=== PATIENT | male | born 1935 | race Caucasian/White ===

== ENCOUNTER 2021-02-25 02:02 | Day surgery (SDC) | payer MEDICARE, SELFPAY ==
[2021-02-16 14:05] VITALS: BMI 26.2
--- NOTE | 2021-02-23 13:25 | P.HP_ITS ---
History of Present Illness History of Present Illness Consent: Risks, benefits, and alternatives have been discussed and questions answered. Patient agrees to proceed with procedure. Chief complaint: dysphagia Narrative: Jethro Nova Jr. is a 85 year old male Was being investigated for persistent severe dysphagia. He has to chew his food quite a bit prior to swallowing. 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 Review of Systems Review of Systems: All systems reviewed & are unremarkable except as noted in HPI and below PMFSH Past Medical History Medical History Heart attack Surgical History Surgical History History of coronary artery stent placement Family History Family History Sibling Asthma Social History Social History Smoking status: Former smoker Tobacco type: cigarettes Living arrangements: with family Spiritual care concerns: No Meds Home Medications and Allergies Home Medications Medication Instructions Recorded Confirmed Type amlodipine 10 mg PO DAILY 02/16/21 02/25/21 History aspirin 81 mg capsule 81 mg PO DAILY 02/16/21 02/25/21 History atenolol 50 mg tablet 50 mg PO DAILY 02/16/21 02/25/21 History fluvastatin 80 mg tablet,extended 80 mg PO DAILY 02/16/21 02/25/21 History release 24 hr furosemide 40 mg tablet 20 mg PO QAM 02/16/21 02/25/21 History isosorbide mononitrate 60 mg 60 mg PO DAILY 02/16/21 02/25/21 History tablet,extended release 24 hr lisinopril 40 mg tablet 40 mg PO DAILY 02/16/21 02/25/21 History nitroglycerin 0.4 mg sublingual 0.4 mg SUBLINGUAL Q5M PRN 02/16/21 02/25/21 History tablet omeprazole 20 mg capsule,delayed 20 mg PO DAILY 02/16/21 02/25/21 History release vitamins A,C,B-ifoy-msffnd 14,320 1 cap PO QAM AND QPM cap 02/16/21 02/25/21 History unit-226 mg-200 unit capsule Allergies Allergy/AdvReac Type Severity Reaction Status Date / Time oxycodone Allergy Severe EXTREME Verified 02/25/21 10:03 VIOLENCE AND AGITATION chlordiazepoxide Allergy Unknown Unknown Verified 02/25/21 10:03 clidinium Allergy Unknown Unknown Verified 02/25/21 10:03 Exam 2 Const: General: alert Orientation/consciousness: patient oriented x3 Resp: Auscultation: clear to auscultation bilaterally Cardio: Rhythm: regular rhythm GI: GI Palp: Yes Soft to palpation and No Tenderness to palpation present (GI) Neuro: General: patient oriented x3 Assessment and Plan Assessment and plan (1) Dysphagia: Code(s): R13.10 - Dysphagia, unspecified Status: Acute Assessment and Plan: EGD with possible biopsy or dilatation or cautery.
[2021-02-25 10:04] VITALS: BP 154/67; PULSE 55; RESP 16; TEMP 36.2; O2SAT 98; BMI 24.3
[2021-02-25] MEDS: LACTATED RINGERS 1,000 ML 150 ML IV CONT (10:15)
--- NOTE | 2021-02-25 10:23 | WPDANESEPPF ---
Anes - Initial Pre Proc Eval Procedure: Operation Date: 02/25/21 11:00 Proposed Procedures p Esophagogastroduodenoscopy - Vu Goodwin MD Date/Time: 02/25/21 10:23 Surgeon: Vu Goodwin MD Pre Op Diagnosis: dysphagia Patient Data Age: 86 Gender: M Height: 1.7 m Weight: 70.3 kg Last Vital Signs Temp 36.2 C L 02/25/21 10:04 Pulse 55 L 02/25/21 10:04 Resp 16 02/25/21 10:04 BP 154/67 H 02/25/21 10:04 Pulse Ox 98 02/25/21 10:04 Allergies Allergy/AdvReac Type Severity Reaction Status Date / Time oxycodone Allergy Severe EXTREME Verified 02/25/21 10:03 VIOLENCE AND AGITATION chlordiazepoxide Allergy Unknown Unknown Verified 02/25/21 10:03 clidinium Allergy Unknown Unknown Verified 02/25/21 10:03 Home Medications Medication Instructions Recorded Confirmed Type amlodipine 10 mg PO DAILY 02/16/21 02/25/21 History aspirin 81 mg capsule 81 mg PO DAILY 02/16/21 02/25/21 History atenolol 50 mg tablet 50 mg PO DAILY 02/16/21 02/25/21 History fluvastatin 80 mg tablet,extended 80 mg PO DAILY 02/16/21 02/25/21 History release 24 hr furosemide 40 mg tablet 20 mg PO QAM 02/16/21 02/25/21 History isosorbide mononitrate 60 mg 60 mg PO DAILY 02/16/21 02/25/21 History tablet,extended release 24 hr lisinopril 40 mg tablet 40 mg PO DAILY 02/16/21 02/25/21 History nitroglycerin 0.4 mg sublingual 0.4 mg SUBLINGUAL Q5M PRN 02/16/21 02/25/21 History tablet omeprazole 20 mg capsule,delayed 20 mg PO DAILY 02/16/21 02/25/21 History release vitamins A,C,S-sobl-qogxoj 14,320 1 cap PO QAM AND QPM cap 02/16/21 02/25/21 History unit-226 mg-200 unit capsule Patient hx anesthesia problems: none Family hx anesthesia problems: none Results Review: All pre-operative results and documents have been reviewed as part of the pre-operative evaluation. ON LICENSE OF [facility] Past Medical History Medical History (Updated 02/25/21 @ 10:24 by Clem Miller MD) CAD (coronary artery disease) GERD (gastroesophageal reflux disease) Heart attack HTN (hypertension) Hyperlipidemia Surgical History Surgical History (Updated 02/25/21 @ 10:23 by Clem Miller MD) History of coronary artery stent placement Family History Family History Sibling Asthma Social History Social History Smoking status: Former smoker Tobacco type: cigarettes Living arrangements: with family Spiritual care concerns: No Anes - Eval Final PreProcedure Day of Procedure 02/25/21 10:23 Patient weight: normal Heart: regular rate and rhythm Lungs: clear to auscultation Airway: Mallampati scale class II Neurological: alert and oriented Last oral intake: >/= 8 hours ASA classification: III Emergent: no Anesthetic plan: proceed Anesthesia type and monitoring: general GIVS and standard monitoring Results Review: All pre-operative results and documents have been reviewed as part of the pre-operative evaluation. Informed Consent: The patient's anesthetic plan and its attendant risks and benefits were discussed with the patient/family/POA. Questions were solicited and answers provided to the satisfaction of the patient/family/POA.
[2021-02-25 10:57] VITALS: BP 128/66; PULSE 53; RESP 20; O2SAT 100
[2021-02-25 11:07] VITALS: BP 141/64; PULSE 52; RESP 19; O2SAT 98
[2021-02-25 11:17] VITALS: BP 141/69; PULSE 51; RESP 19; O2SAT 96
--- NOTE | 2021-02-25 11:36 | SUR.PHASEII ---
MEDICAL FRONT DESK COORDINATOR WAS NOT BACK FROM ANOTHER APPOINTMENT
== END 2021-02-25 11:41 | disposition home or self-care (01) ==
PROVIDERS: PCP Internal Medicine; Visit Provider Internal Medicine Gastroenterology
PROC: 0DJ08ZZ Inspection of Upper Intestinal Tract, Via Natural or Artificial Opening Endoscopic (ICD-10-PCS; CPT 43235; principal; 2021-02-25 11:00)
DX: R13.10 Dysphagia, unspecified (principal); K21.9 Gastro-esophageal reflux disease without esophagitis; I25.2 Old myocardial infarction; Z87.891 Personal history of nicotine dependence; Z95.5 Presence of coronary angioplasty implant and graft; Z85.9 Personal history of malignant neoplasm, unspecified
CPT/HCPCS: 43235; 43450; J2704; J7120

== ENCOUNTER 2021-11-08 09:39 | Inpatient (IN) | payer MEDICARE, SELFPAY ==
[2021-11-08] VITALS (21 sets, daily range): BP systolic 127–142; BP diastolic 61–77; PULSE 87–110; RESP 16–30; TEMP 36.2–36.7; O2SAT 90–97; BMI 21.7
--- NOTE | 2021-11-08 | ECHOL_ITS ---
Patient Info Name: Jethro Nova Age: 86 years : 1935 Gender: Male Ht: 67 in Wt: 138 lbs BSA: 1.72 m2 HR: 106 bpm BP: 128 / 68 mmHg Heart Rhythm: Tachycardia, Sinus Rhythm Technical Quality: Poor Exam Date: 11/08/2021 2:28 PM Exam Location: [facility] Pulmonary Patient Status: Outpatient Admit Date: 11/08/2021 Staff Ordering Physician: Billy Alfonso Supervisor Fireworks Assembly: Keysha Dillon RDCS Attending Provider: Gildardo Mackey MD Referring Physician: Kaden ZAVALA; Exam Type: CA echo limited Study Info Indications R55 - Syncope and collapse Limited two-dimensional transthoracic echocardiogram is performed. Reason for Poor Study: poor echocardiographic windows Summary 1. Technically difficult study with limited views. Regional wall motion assessment limited due to poor endomyocardial border definition in several views. 2. The left ventricular diastolic function is indeterminate. 3. Left ventricular systolic function is normal, estimated at 60-65%. 4. Right ventricular chamber dimension is not well visualized. Right ventricular size appears to be normal with probable preserved systolic function. 5. There is mild mitral valve regurgitation. 6. There is trace tricuspid valve regurgitation. 7. No pulmonary hypertension, estimated pulmonary arterial systolic pressure is 21 mmHg. Left Ventricle Left ventricular systolic function is normal, estimated at 60-65%. The left ventricular diastolic function is indeterminate. Technically difficult study with limited views. Regional wall motion assessment limited due to poor endomyocardial border definition in several views. Right Ventricle Right ventricular chamber dimension is not well visualized. Right ventricular size appears to be normal with probable preserved systolic function. Left Atria Left atrial chamber dimension is normal. Right Atria Right atrial chamber dimension is normal. Aortic Valve The aortic valve is not well visualized. Pulmonic Valve The pulmonic valve is not well visualized. Mitral Valve The mitral valve has normal leaflets. There is mild mitral valve regurgitation. The mitral valve annulus is mildly calcified. Tricuspid Valve The tricuspid valve leaflets are normal. There is trace tricuspid valve regurgitation. No pulmonary hypertension, estimated pulmonary arterial systolic pressure is 21 mmHg. Pericardium/Pleural The pericardium appears not well visualized. Inferior Vena Cava Dilated inferior vena cava with >50% collapse upon inspiration consistent with elevated right atrial pressure, 10 mmHg. Aorta The aortic root size at the sinus of Valsalva is normal. Pulmonic Valve Name Value Normal RVOT Doppler RVOT Peak Gradient 3 mmHg PV Doppler PV Peak Gradient 3 mmHg Tricuspid Valve Name Value Normal TV Regurgitation Doppler TR Peak Velocity
--- NOTE | ~2021-11-08 | CT_ITS ---
EXAMINATION: CT cervical spine wo con DATE: 11/08/2021 10:50 INDICATION: Head injury post fall TECHNIQUE: Computed tomography (CT) of the cervical spine was performed without intravenous contrast. Automated exposure control and iterative reconstruction technique were employed. The dose-length pro duct was 154.98 mGy-cm. COMPARISON: None FINDINGS: Severe osteoarthritis at the atlantoaxial articulation. Exaggerated cervical lordosis. Vertebral body heights are normal. No fracture. Cervical soft tissues are unremarkable. Visualized portions of the airway and apices of lungs are clear. Anterior fusion across the C5-C6 disc space. Moderate to severe posterior predominant disc height loss at C3-C4 and C6-C7. Moderate disc height loss at C2-C3, C7-T1 and T2-T3. Mild disc height loss at C4-C5 and T1-T2. The following disc levels are specifically disc ussed: C2-C3: Small posterior endplate osteophytes. There is mild bilateral uncovertebral joint osteoarthrit is. There is severe bilateral facet joint osteoarthritis. There is mild bilateral neural foraminal st enosis. There is mild central canal stenosis. C3-C4: Posterior disc osteophyte complex. There is severe bilateral uncovertebral joint osteoarthriti s. There is moderate left and moderate to severe right facet joint osteoarthritis. There is moderate bilateral neural foraminal stenosis. There is mild central canal stenosis. C4-C5: Minimal ossification along the posterior longitudinal ligament. There is mild bilateral uncove rtebral joint osteoarthritis. There is moderate to severe bilateral facet joint osteoarthritis. There is mild left and minimal right neural foraminal stenosis. There is minimal central canal stenosis. C5-C6: Endplate osteophytes along the fused disc space. There is mild bilateral facet joint osteoarth ritis. There is mild bilateral neural foraminal stenosis. There is mild central canal stenosis. C6-C7: Stricture disc osteophyte complex. There is severe bilateral uncovertebral joint osteoarthriti s. There is mild left and mild to moderate right facet joint osteoarthritis. There is mild to moderat e bilateral neural foraminal stenosis. There is mild central canal stenosis. C7-T1: Tiny endplate osteophytes. There is minimal bilateral uncovertebral joint osteoarthritis. Ther e is moderate to severe bilateral facet joint osteoarthritis. There is minimal right neural foraminal stenosis. There is no central canal stenosis. IMPRESSION: 1. Exaggerated cervical lordosis, severe spondylosis and anterior fusion at C5-C6. No acute osseous a bnormality. Reviewed, dictated and finalized at location B. IMPRESSION: 1. Exaggerated cervical lordosis, severe spondylosis and anterior fusion at C5- C6. No acute osseous abnormality.
--- NOTE | ~2021-11-08 | CT_ITS ---
EXAMINATION: CT brain wo con DATE: 11/08/2021 10:50 INDICATION: Head injury. TECHNIQUE: Computed tomography (CT) of the head was performed without intravenous contrast. The mA wa s adjusted according to patient size. Iterative reconstruction technique was employed. The dose-lengt h product was 681.00 mGy-cm. COMPARISON: None FINDINGS: There are scattered areas of low attenuation in the cerebral white matter. There is an old infarct in the right basal ganglia. There is no intracranial hemorrhage, acute infarction, or abnorma l intracranial mass lesion. The ventricles are normal in size. There are likely changes of ocular heri s replacement surgeries. The paranasal sinuses are clear. The mastoid air cells are normal. IMPRESSION: 1. Moderate nonspecific cerebral white matter disease, which likely represents chronic small vessel i schemic disease. 2. Old infarct in the right basal ganglia. Reviewed, dictated and finalized at location A. IMPRESSION: 1. Moderate nonspecific cerebral white matter disease, which likely represents chronic small vessel ischemic disease. 2. Old infarct in the right basal ganglia.
--- NOTE | ~2021-11-08 | XR_ITS ---
XR chest 1V DATE: 11/08/2021 10:52 INDICATION: Fall. Weakness. TECHNIQUE: AP semiupright view on 11/08/2021 1049 hours COMPARISON: None FINDINGS: Normal heart size. Is aortic calcification and unfolding. No hilar or mediastinal enlargeme nt. No pulmonary infiltrate or consolidation, pleural effusion or pulmonary vascular congestion or pneumo thorax is detected. Diffuse osteopenia. Bilateral rotator cuff atrophy. Mild upper thoracic dextroscoliosis and lower tho racic levoscoliosis and degenerative spurring of the thoracic spine. IMPRESSION: No active cardiopulmonary disease Calcification and unfolding Reviewed, dictated and finalized at location A.
--- NOTE | ~2021-11-08 | CT_ITS ---
EXAMINATION: CTA chest PE protocol DATE: 11/08/2021 19:41 CDT INDICATION: Elevated d-dimer TECHNIQUE: Computed tomographic angiography (CTA) of the chest was performed with 100 mL Omnipaque-35 0 intravenous contrast. The dose-length product was 543.82 mGy-cm. Maximum intensity projection 3D-re constructions of the aorta and other arteries were constructed by the technologist on a separate work station. Automated exposure control and iterative reconstruction technique were employed. COMPARISON: No prior studies for comparison. . FINDINGS: There is mediastinal lymphadenopathy. Right paratracheal lymph node measures 3.4 x 3.3 cm. There is also right hilar and subcarinal lymphadenopathy. Study is technically adequate without evide nce for pulmonary embolism. Evaluation of lower lobe pulmonary arteries limited by motion. There is a therosclerosis of the aorta and coronary arteries. Heart size normal. There is bilateral lower lobe a irspace consolidation, right greater than left, consistent with pneumonia. There is a partially calci fied soft tissue mass in the right upper abdomen anteriorly of uncertain origin. Recommend follow-up CT abdomen with contrast for further assessment. There are multiple low density lesions of the liver. IMPRESSION: 1. No evidence for pulmonary embolism. 2: Bilateral lower lobe airspace disease, compatible with pneumonia. 3: Mediastinal and right hilar lymphadenopathy, suspicious for metastatic disease or lymphoma. Corre late for history of malignancy. 4: Partially calcified soft tissue mass upper abdomen anteriorly. Recommend dedicated CT abdomen with contrast for further assessment. Reviewed, dictated and finalized at location A. IMPRESSION: 1. No evidence for pulmonary embolism. 2: Bilateral lower lobe airspace disease, compatible with pneumonia. 3: Mediastinal and right hilar lymphadenopathy, suspicious for metastatic dise ase or lymphoma. Correlate for history of malignancy. 4: Partially calcified soft tissue mass upper abdomen anteriorly. Recommend ded icated CT abdomen with contrast for further assessment.
--- NOTE | ~2021-11-08 | US_ITS ---
EXAMINATION: US carotid duplex BI DATE: 11/09/2021 15:48 INDICATION: Syncope TECHNIQUE: Grayscale, color Doppler, and pulsed Doppler images of the cervical carotid arteries were obtained. The degree of vessel stenosis is placed in one of the following categories: normal, <50%, 5 0-69%, >=70% but less than near-occlusion, near-occlusion, or total occlusion. Note that percent sten osis relative to normal distal artery lumen diameter is indirectly measured from velocity measurement s as described by Gerardo, et al. Radiology 2003; 229:[id number]. Notes: Normal: Peak systolic velocity <125 centimeters/sec and no plaque <50%. Peak systolic velocity <125 ( EDV <40; ICA/CCA PSV ratio <2.0; used these factors only a tandem lesions or low cardiac output or co ntralateral disease) 50-69 %: PSV 125-230 (EDV 40-100; ratio 2-4) >= 70% but less than near occlusion: PSV greater than 230 (EDV > 100; ratio> 4.0) Near Occlusion: PSV that is variable; markedly narrowed lumen Occlusion: Absent flow on color/spectral Doppler and no lumen on mccarthy scale. COMPARISON: None. FINDINGS: RIGHT: The right common carotid artery (CCA) peak systolic velocity (PSV) is 72 cm/s. The right internal car otid artery (ICA) PSV is 114 cm/s. The right ICA end-diastolic velocity (EDV) is 14 cm/s. The right I CA/CCA PSV ratio is 1.6. The external carotid artery (ECA) PSV is 120 cm/s. There is antegrade flow i n the right vertebral artery. LEFT: The left CCA PSV is 59 cm/s. The left ICA PSV is 108 cm/s. The left ICA EDV is 24 cm/s. The left ICA/ CCA PSV ratio is 1.8. The ECA PSV is 75 cm/s. There is antegrade flow in the left vertebral artery. IMPRESSION: 1. Less than 50% stenosis in the right internal carotid artery by sonographic criteria. 2. Less than 50% stenosis in the left internal carotid artery by sonographic criteria. Reviewed, dictated and finalized at location A. IMPRESSION: 1. Less than 50% stenosis in the right internal carotid artery by sonographic amberly barrios. 2. Less than 50% stenosis in the left internal carotid artery by sonographic esther benavides.
--- NOTE | 2021-11-08 09:47 | ECG_ITS ---
Measurements Intervals [place] Rate: 93 P: [place]: 0 QRS: 58 QRSD: 141 T: 51 QT: 393 QTc: 491 Interpretive Statements SINUS RHYTHM RIGHT BUNDLE BRANCH BLOCK BASELINE ARTIFACT- I, II, III, AVR, AVL, AVF, V1-V6 ABNORMAL ECG Electronically Signed On 11-08-2021 11:57:44 CDT by Sonu Estrada D.O.
--- NOTE | 2021-11-08 09:50 | ED.FALL ---
HPI - Fall General Chief Complaint: Fall <Tyson Ronquillo APRN - Last Filed: 11/08/21 13:27> Stated Complaint: fall <Tyson Ronquillo APRN - Last Filed: 11/08/21 13:27> Time Seen by Provider: 11/08/21 09:41 <Tyson Ronquillo APRN - Last Filed: 11/08/21 13:27> History of Present Illness HPI Narrative: 86-year-old male presents the emergency room for evaluation of injury sustained from a fall. Patient states he was feeling weak this morning and fell backwards from a standing position striking his head on the ground. Denies any LOC or altered mental status. Around presently patient is alert and oriented x3. Denies any chest pain or difficulty breathing. Denies any other injuries. <Tyson Ronquillo APRN - Last Filed: 11/08/21 13:27> Related Data Home Medications: Home Medications Medication Instructions Recorded Confirmed amlodipine 10 mg tablet 10 mg PO DAILY 02/16/21 02/25/21 aspirin 81 mg capsule 81 mg PO DAILY 02/16/21 02/25/21 atenolol 50 mg tablet 50 mg PO DAILY 02/16/21 02/25/21 fluvastatin 80 mg tablet,extended 80 mg PO DAILY 02/16/21 02/25/21 release 24 hr furosemide 40 mg tablet 20 mg PO QAM 02/16/21 02/25/21 isosorbide mononitrate 60 mg 60 mg PO DAILY 02/16/21 02/25/21 tablet,extended release 24 hr lisinopril 40 mg tablet 40 mg PO DAILY 02/16/21 02/25/21 nitroglycerin 0.4 mg sublingual 0.4 mg sublingual Q5M PRN Angina 02/16/21 02/25/21 tablet omeprazole 20 mg capsule,delayed 20 mg PO DAILY 02/16/21 02/25/21 release vitamins A,C,X-uyuk-zonrbc 14,320 1 cap PO QAM AND QPM 02/16/21 02/25/21 unit-226 mg-200 unit capsule (PreserVision AREDS) <Tyson Ronquillo APRN - Last Filed: 11/08/21 13:27> Allergies/Adverse Reactions: Allergies Allergy/AdvReac Type Severity Reaction Status Date / Time oxycodone Allergy Severe EXTREME Verified 02/25/21 10:03 VIOLENCE AND AGITATION chlordiazepoxide Allergy Unknown Unknown Verified 02/25/21 10:03 clidinium Allergy Unknown Unknown Verified 02/25/21 10:03 <Tyson Ronquillo APRN - Last Filed: 11/08/21 13:27> Review of Systems Review of Systems: CONSTITUTIONAL: Denies fever, chills, or sweats. EYES: Denies visual changes, redness, or discharge. ENT: Denies rhinorrhea, congestion, sore throat, or otalgia. CARDIOVASCULAR: Denies chest pain, palpitations. Reports lower extremity edema RESPIRATORY: Reports productive cough GASTROINTESTINAL: Denies abdominal pain, nausea, vomiting, or diarrhea. GENITOURINARY: Denies dysuria or hematuria. SKIN: Denies rash or itching. MUSCULOSKELETAL: Reports cervical spine pain NEUROLOGIC: Denies headache, numbness, dizziness, or weakness. PSYCHIATRIC: Denies anxiety or depression. <Tyson Ronquillo APRN - Last Filed: 11/08/21 13:27> [facility] Past Medical History Medical History: Medical History (Updated 11/08/21 @ 12:27 by JOSSELIN Obrien) CAD (coronary artery disease) GERD (gastroesophageal reflux disease) Heart attack HTN (hypertension) Hyperlipidemia <Tyson Ronquillo APRN - Last Filed: 11/08/21 13:27> Surgical History Surgical History: Surgical History History of coronary artery stent placement <Tyson Ronquillo APRN - Last Filed: 11/08/21 13:27> Family History Family History: Family History Sibling Asthma <Tyson Ronquillo APRN - Last Filed: 11/08/21 13:27> Social History Social History: Social History Smoking status: Former smoker Tobacco type: cigarettes Spiritual care concerns: No <Tyson Ronquillo APRN - Last Filed: 11/08/21 13:27> Exam Narrative: GENERAL: Well-appearing, well-nourished, no physical limitations, and in no acute distress. HEAD: Normocephalic, atraumatic. EYES: Conjunctivae normal, PERRLA and EOMI. NECK: Supple. No meningeal signs. No haseeb
[2021-11-08 10:26] LABS: Basophils Percent Auto 0.3 % (0.2-1.2); Eosinophils Percent Auto 0.1 % (0-4.4); Hematocrit 42.8 % (42.0-52.0); Hemoglobin 13.2 g/dL (14.0-18.0); Immature Granulocyte Absolute 0.05 K/mm3 (0.00-0.031); Immature Granulocyte Percent A 0.6 % (0-0.5); Immature Platelet Fraction Pct 4.5 % (0.9-11.2); Lymphocytes Absolute Auto 0.36 K/mm3 (0.9-3.2); Lymphocytes Percent Auto 4.7 % (18.3-44.2); Mean Corpuscular HGB Conc 30.8 g/dl (32-36); Mean Corpuscular Hemoglobin 29.8 pg (26-34); Mean Corpuscular Volume 96.6 fl (80-100); Mean Platelet Volume 10.7 fl (7.4-10.4); Monocytes Absolute Auto 0.5 K/mm3 (0.1-0.6); Monocytes Percent Auto 6.9 % (2.6-8.5); Neutrophils Absolute Auto 6.7 K/mm3 (1.3-6.7); Neutrophils Percent Auto 87.4 % (45.5-73.1); Platelet Count Result 135 k/mm3 (150-375); Red Blood Count 4.43 M/mm3 (4.6-6.20); Red Cell Distribution Width 16.4 % (11.5-14.5); White Blood Count 7.7 K/mm3 (4.5-10.0)
[2021-11-08 10:33] LABS: Lactic Acid Reflex 1.6 mmol/L (0.7-2.0)
[2021-11-08 10:34] LABS: Alanine Aminotransferase 19 U/L (6-50); Albumin Level 4.3 g/dL (3.5-5.1); Alkaline Phosphatase 130 U/L (38-126); Anion Gap 5 mmol/L (8-16); Aspartate Amino Transferase 33 U/L (17-59); Bilirubin,Total 0.8 mg/dL (0.2-1.3); Blood Urea Nitrogen 15 mg/dL (9-20); Calcium 8.5 mg/dL (8.4-10.2); Carbon Dioxide 34 mmol/L (22-30); Chloride 99 mmol/L (98-107); Estimated CRCL calculation 51 ml/min; Estimated Glomerular Filt Rate > 60; Glucose 140 mg/dL (65-110); Lipase 13 U/L (23-300); Potassium 3.7 mmol/L (3.4-5.0); Sodium 138 mmol/L (137-145)
[2021-11-08 10:37] LABS: Add Urine Microscopic? NO; Appearance Urine Clear (Clear); Bilirubin Urine Negative (Negative); Blood Urine Negative (Negative); Color Urine Yellow (Yellow); Glucose Urine UA Negative (Negative); Ketones Urine Negative (Negative); Leukocyte Esterase Ur Negative LEU/UL (Negative); Nitrate Urine Negative (Negative); Protein Urine Negative (Negative); Specific Grav Ur 1.015 (1.001-1.035); Urobilinogen Urine 0.2 mg/dL (<2.0); pH Urine 6.5 (5.0-9.0)
[2021-11-08 10:46] LABS: NT Pro B Type Natriuretic Pept 1660 pg/mL (5-100); Troponin I 0.023 ng/mL (0.000-0.034)
[2021-11-08] MEDS: FUROSEMIDE INJ 40 MG/4 ML VIAL IV PUSH (11:32)
[2021-11-08 11:33] LABS: SARS-CoV-2 RNA PCR Positive
--- NOTE | 2021-11-08 12:22 | PM.IMHP ---
H&P: HPI History of Present Illness Date/Time: 11/08/21 12:22 Chief Complaint: Fall Narrative: Patient is an 86 year old male with a past medical history of HTN, CHF, CAD, TX, and CAD who presented to the ED after a fall. Patient stated that he was feeling weak while standing and fell backwards hitting his head. patient stated he does not know what happened he just knows that when he woke up he was on the floor. He also stated that he got a little dizzy and lightheaded prior to the fall. He also had more of a cough lately. He did state that his cough is producing a brown sputum any has a decreased appetite he denies any chest pain, shortness of breath, nausea, vomiting, diarrhea, constipation. patient is a very poor historian he did know where he was at who he is however he did know the date but he did know situation. He did test COVID positive in BNP was slightly elevated at 1660. Urinary catheter was very tough to put in and coude was placed with good urine output. Head CT does show old infarcts and chronic small vessel ischemic disease. Baseline is unknown at this time. His son stated that his mother called him this morning about coming to help her get him off the floor. It was stated that his mother went to the kitchen to get his clothes from the laundry room and when she came back he was on the floor. It sounded like he had only been on the floor for about 30mins before EMS was called. At that time he was noted to be clammy and soaked with sweat. He denies hearing of any other symptoms. Talked to the son Raj about the recent event of the he stated that the patient has been having some problems with memory. He stated that the patient will forget how to do things. He stated that when he is walking he will stop and act like he forgot how to take the next step. 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 He did state that the cancer is now everywhere and the last time they were doing a surgery, they closed up the abdomen and stated the the cancer had spread and is currently through out the abdominal cavity. He also stated that the cancer was also interfering with all organs as well. He also explained that the cancer was now above the diaphragm. Review of Systems Review of Systems: All systems reviewed & are unremarkable except as noted in HPI and below PMFSH Past Medical History Medical History (Updated 11/08/21 @ 16:34 by JOSSELIN Obrien) CAD (coronary artery disease) Carcinoid tumor of abdomen GERD (gastroesophageal reflux disease) Heart attack HTN (hypertension) Hyperlipidemia Metastatic carcinoid tumor Surgical History Surgical History History of coronary artery stent placement Family History Family History Sibling Asthma Social History Social History (Updated 11/08/21 @ 15:25 by JOSSELIN Obrien) Social History: Patient currently lives his Echo they have 3 boys and no pets. Patient wishes to place his Echo as the surrogate. Patient stated that he want to be a DNR however I am not sure that the patient is capable of making that decision at this time trying to confirm with family however having hard time getting hold of them. 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
[2021-11-08 13:28] LABS: D Dimer 3.76 ug/mL (<0.48)
--- NOTE | 2021-11-08 13:28 | ADMGEN ---
This patient, Jethro Nova Jr., was admitted to [facility] Surg Room 332-01 at 1320. Patient/family oriented to hospital policies and general routines including ID bracelet, bed and alarms, visiting hours, pain management, procedures, bathroom and other care routines, personal items, smoking policy, room service/diet, and visiting hours. Information on how to activate the Rapid Response Team has been discussed. Patient/Family are encouraged to report perceived risks to care and to ask questions if they do not understand what they are told or what they should do.
[2021-11-08 14:54] LABS: Troponin I 0.019 ng/mL (0.000-0.034)
[2021-11-08 16:30] LABS: CRP 2.9 mg/dL (<1.0); Lactate Dehydrogenase 527 U/L (313-618)
[2021-11-08 17:54] LABS: Alanine Aminotransferase 21 U/L (6-50); Estimated CRCL calculation 58 ml/min; Estimated Glomerular Filt Rate > 60
[2021-11-08 17:56] LABS: INR 1.3; Prothrombin Time 15.8 Seconds (11.1-14.7)
[2021-11-08] MEDS: REMDESIVIR 200 MG/NS 250 ML 200 MG/250 ML BAG 250 MG IVPB (18:26)
[2021-11-09] VITALS (10 sets, daily range): BP systolic 115–144; BP diastolic 59–90; PULSE 66–92; RESP 16–30; TEMP 36–37.7; O2SAT 90–99; BMI 10.0
--- NOTE | 2021-11-09 04:31 | PC.NURSE ---
Patient condition at this time does not match the condition of the patient in ER. Patient is oriented to person and disoriented to place, time, and situation. Patient can not verbally respond to technical proposal writer. Patient does not follow commands. Contacted hospitalist Chon to update her on patients worsening condition. New orders have been put in.
[2021-11-09 04:52] LABS: Alveolar/Arterial O2 Gradient 133.4 mmHg; Base Excess ABG 1.5 mEq/l (+/-2.0); Device NASAL CANNULA; Fractional Inspired Oxygen 36 %; HCO3 ABG 25.4 mEq/l (22.0-26.0); Modified Allen's Test Pass; Oxygen Saturation ABG 96.3 % (95.0-100.0); Oxyhemoglobin 94.2 % THb (90.0-100.0); PCO2 ABG 37.5 mmHg (35.0-45.0); PO2 ABG 79.8 mmHg (80.0-100.0); PO2 FiO2 Ratio Arterial Blood 2.22 %; Site Drawn LEFT RADIAL; Total Hemoglobin 12.8 g/dL (12.0-18.0); pH ABG 7.448 (7.350-7.450)
[2021-11-09 06:27] LABS: Basophils Percent Auto 0.2 % (0.2-1.2); Hematocrit 40.1 % (42.0-52.0); Hemoglobin 12.4 g/dL (14.0-18.0); Immature Granulocyte Absolute 0.07 K/mm3 (0.00-0.031); Immature Granulocyte Percent A 0.6 % (0-0.5); Immature Platelet Fraction Pct 5.2 % (0.9-11.2); Lymphocytes Absolute Auto 0.68 K/mm3 (0.9-3.2); Lymphocytes Percent Auto 5.6 % (18.3-44.2); Mean Corpuscular HGB Conc 30.9 g/dl (32-36); Mean Corpuscular Hemoglobin 29.4 pg (26-34); Mean Platelet Volume 11.3 fl (7.4-10.4); Monocytes Absolute Auto 0.6 K/mm3 (0.1-0.6); Monocytes Percent Auto 4.6 % (2.6-8.5); Neutrophils Absolute Auto 10.9 K/mm3 (1.3-6.7); Platelet Count Result 122 k/mm3 (150-375); Red Blood Count 4.22 M/mm3 (4.6-6.20); Red Cell Distribution Width 16.4 % (11.5-14.5); White Blood Count 12.3 K/mm3 (4.5-10.0)
[2021-11-09 06:30] LABS: Alanine Aminotransferase 17 U/L (6-50); Albumin Level 3.6 g/dL (3.5-5.1); Alkaline Phosphatase 100 U/L (38-126); Anion Gap 5 mmol/L (8-16); Aspartate Amino Transferase 29 U/L (17-59); Bilirubin,Total 1.1 mg/dL (0.2-1.3); Blood Urea Nitrogen 20 mg/dL (9-20); Calcium 8.1 mg/dL (8.4-10.2); Carbon Dioxide 34 mmol/L (22-30); Chloride 99 mmol/L (98-107); Estimated CRCL calculation 51 ml/min; Estimated Glomerular Filt Rate > 60; Glucose 151 mg/dL (65-110); Magnesium 1.8 mg/dL (1.6-2.3); Potassium 3.1 mmol/L (3.4-5.0); Sodium 138 mmol/L (137-145)
[2021-11-09 06:33] LABS: INR 1.3
[2021-11-09] MEDS: PANTOPRAZOLE SODIUM IV 40 MG VIAL IV PUSH (09:05)
[2021-11-09] MEDS: ENOXAPARIN 40 MG/0.4 ML SYRINGE SUB-Q (09:06)
[2021-11-09] MEDS: cycloSPORINE 0.4 ML OPHTH SOLUTION 1 DROP EACH EYE (09:07)
[2021-11-09] MEDS: POTASSIUM CHLORIDE INJ 40 MEQ in SODIUM CHLORIDE 0.9% IV 500 ML 130 MEQ IVPB (10:05)
--- NOTE | 2021-11-09 15:00 | P.PNIM_ITS ---
Progress Note: A&P Assessment and Plan (1) COVID-19: Code(s): U07.1 - COVID-19 Status: Acute Assessment and Plan: * COVID positive * On supplemental oxygen, wean to maintain saturation >90% * D. Dimer 3.76, ferritin 180, CRP 2.9, and LDH 527 * Chest xray no active cardiopulmonary disease * CTA negative for PE but does show bilateral pneumonia, could be due to covid or aspiration. Will continue Zosyn to cover aspiration PNA. * Continue Remdesivir and Decadron (2) CHF (congestive heart failure): Code(s): I50.9 - Heart failure, unspecified Status: Acute Assessment and Plan: * BNP elevated at 1660 * Echo reviewed, poor study w/ limited views * 20mg PO lasix at home, change to IV Lasix 40mg BID x 4 doses * Trend urine output * Supplemental oxygen * Trend SPO2 * Daily weights (3) CAD (coronary artery disease): Code(s): I25.10 - Atherosclerotic heart disease of [place] coronary artery without angina pectoris Status: Acute Assessment and Plan: * Hx of [place] * Continue aspirin, atenolol 50mg PO daily * EKG SR in 93 * Echo reviewed * site monitor (4) HTN (hypertension): Code(s): I10 - Essential (primary) hypertension Status: Acute Assessment and Plan: * BP reviewed, stable * Continue home lisinopril 40mg PO daily, Imdur 60mg PO daily, Atentolol 50mg PO daily, Amlodipine 10mg PO daily * trend BP (5) Hyperlipidemia: Code(s): E78.5 - Hyperlipidemia, unspecified Status: Acute Assessment and Plan: * Continue home fluvastatin 80mg PO daily * LFTs WNL (6) Dysphagia: Code(s): R13.10 - Dysphagia, unspecified Status: Acute Assessment and Plan: * Family reports coughing with eating or drinking * Dr. Goodwin did a esophageal stretching on 02/17 * ST consulted, they recommend NPO * Will keep him NPO w/ low rate maintenance fluids. Will assess his progress since treating his COVID, PNA, and CHF. I have concerns about his overall de byrne due to his cancer but will address his current infections first and foremost. 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 Washington * Scan was done recently however, not able to see the results Subjective Date/time seen: 11/09/21 15:00 Interval history: 86 year old male with a past medical history of HTN, CHF, CAD, [place], CAD, carcinoid tumor of the abdomen, who presented to the ED after a fall. Today he is alert but not responsive to me in any way. He was unable to answer any of my questions and would not look at me when I was examining him. Rather he seemed to be staring off during the entire encounter. Further hx limited secondary to mental status. Review of Systems Review of Systems: ROS unobtainable: Yes unobtainable due to mental status Exam Narrative: General: No acute distress, chronically ill appearing, elderly Eyes: PERRL, no scleral icterus HEENT: NCAT, external ears normal, dry mucous membranes Respiratory: No respiratory distress, diffuse rhonchi and scattered wheezes Cardiovascular: RRR, no murmur Abdominal: Soft, non
--- NOTE | 2021-11-09 15:00 | PM.IMPN ---
Progress Note: A&P Assessment and Plan (1) COVID-19: Code(s): U07.1 - COVID-19 Status: Acute Assessment and Plan: COVID positive On supplemental oxygen, wean to maintain saturation >90% D. Dimer 3.76, ferritin 180, CRP 2.9, and LDH 527 Chest xray no active cardiopulmonary disease CTA negative for PE but does show bilateral pneumonia, could be due to covid or aspiration. Will continue Zosyn to cover aspiration PNA. Continue Remdesivir and Decadron (2) CHF (congestive heart failure): Code(s): I50.9 - Heart failure, unspecified Status: Acute Assessment and Plan: BNP elevated at 1660 Echo reviewed, poor study w/ limited views 20mg PO lasix at home, change to IV Lasix 40mg BID x 4 doses Trend urine output Supplemental oxygen Trend SPO2 Daily weights (3) CAD (coronary artery disease): Code(s): I25.10 - Atherosclerotic heart disease of [place] coronary artery without angina pectoris Status: Acute Assessment and Plan: Hx of [place] Continue aspirin, atenolol 50mg PO daily EKG SR in 93 Echo reviewed manager monitoring (4) HTN (hypertension): Code(s): I10 - Essential (primary) hypertension Status: Acute Assessment and Plan: BP reviewed, stable Continue home lisinopril 40mg PO daily, Imdur 60mg PO daily, Atentolol 50mg PO daily, Amlodipine 10mg PO daily trend BP (5) Hyperlipidemia: Code(s): E78.5 - Hyperlipidemia, unspecified Status: Acute Assessment and Plan: Continue home fluvastatin 80mg PO daily LFTs WNL (6) Dysphagia: Code(s): R13.10 - Dysphagia, unspecified Status: Acute Assessment and Plan: Family reports coughing with eating or drinking Dr. Goodwin did a esophageal stretching on 02/17 [address] consulted, they recommend NPO Will keep him NPO w/ low rate maintenance fluids. Will assess his progress since treating his COVID, PNA, and CHF. I have concerns about his overall decline due to his cancer but will address his current infections first and foremost. 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 Washington Scan was done recently however, not able to see the results Subjective Date/time seen: 11/09/21 15:00 Interval history: 86 year old male with a past medical history of HTN, CHF, CAD, [place], CAD, carcinoid tumor of the abdomen, who presented to the ED after a fall. Today he is alert but not responsive to me in any way. He was unable to answer any of my questions and would not look at me when I was examining him. Rather he seemed to be staring off during the entire encounter. Further hx limited secondary to mental status. Review of Systems Review of Systems: ROS unobtainable: Yes unobtainable due to mental status Exam Narrative: General: No acute distress, chronically ill appearing, elderly Eyes: PERRL, no scleral icterus HEENT: NCAT, external ears normal, dry mucous membranes Respiratory: No respiratory distress, diffuse rhonchi and scattered wheezes Cardiovascular: RRR, no murmur Abdominal: Soft, nontender, non distended, no rebound or guarding Musculoskeletal: Moves all 4 extremities, no edema Neurological: A/Ox0, alert but not responsive to my voice or touch, no facial asymmetry Skin: Warm, dry, no rashes Psychiatric: Confused Objective Data Vital Signs Vital Signs: Vital Signs - 24 hr 11/08/21 16:00 11/08/21 18:32 11/08/21 16:00 Temperature 97.7 F Pulse Rate 103 H 94 103 H Respiratory Rate 16 Blood Pressure 128/71 128/65 Pulse Oximetry 92 97 Oxygen Delivery Oxygen Flow Rate 11/08/21 19:00 11/08/21 20:00 11/09/21 00:00 Temperature 98.0 F 99.0 F Pulse
--- NOTE | 2021-11-09 16:05 | PCSTNOTE ---
Please refer to the Bedside Swallow Evaluation in the EMR. Please note, silent aspiration cannot be ruled out at bedside.
[2021-11-09] MEDS: SODIUM CHLORIDE 0.9% IV 1,000 ML 60 ML IV CONT (19:06)
[2021-11-09] MEDS: REMDESIVIR 100 MG/NS 250 ML 100 MG/250 ML BAG 250 MG IVPB (21:58)
[2021-11-10] VITALS (10 sets, daily range): BP systolic 125–163; BP diastolic 61–79; PULSE 57–78; RESP 14–16; TEMP 36.1–36.5; O2SAT 93–99
[2021-11-10 07:01] LABS: Hematocrit 41.5 % (42.0-52.0); Hemoglobin 12.2 g/dL (14.0-18.0); Immature Granulocyte Absolute 0.04 K/mm3 (0.00-0.031); Immature Granulocyte Percent A 0.4 % (0-0.5); Immature Platelet Fraction Pct 5.6 % (0.9-11.2); Lymphocytes Absolute Auto 1.12 K/mm3 (0.9-3.2); Lymphocytes Percent Auto 11.8 % (18.3-44.2); Mean Corpuscular HGB Conc 29.4 g/dl (32-36); Mean Corpuscular Hemoglobin 29.6 pg (26-34); Mean Corpuscular Volume 100.7 fl (80-100); Mean Platelet Volume 11.1 fl (7.4-10.4); Monocytes Absolute Auto 0.5 K/mm3 (0.1-0.6); Monocytes Percent Auto 5.6 % (2.6-8.5); Neutrophils Absolute Auto 7.8 K/mm3 (1.3-6.7); Neutrophils Percent Auto 82.2 % (45.5-73.1); Platelet Count Result 115 k/mm3 (150-375); Red Blood Count 4.12 M/mm3 (4.6-6.20); Red Cell Distribution Width 16.5 % (11.5-14.5); White Blood Count 9.5 K/mm3 (4.5-10.0)
[2021-11-10 07:09] LABS: INR 1.4; Prothrombin Time 16.3 Seconds (11.1-14.7)
[2021-11-10 07:32] LABS: D Dimer 1.95 ug/mL (<0.48)
[2021-11-10 07:40] LABS: Alanine Aminotransferase 17 U/L (6-50); Albumin Level 3.1 g/dL (3.5-5.1); Alkaline Phosphatase 86 U/L (38-126); Anion Gap 5 mmol/L (8-16); Aspartate Amino Transferase 33 U/L (17-59); Bilirubin,Total 0.7 mg/dL (0.2-1.3); Blood Urea Nitrogen 28 mg/dL (9-20); Calcium 8.1 mg/dL (8.4-10.2); Carbon Dioxide 30 mmol/L (22-30); Chloride 104 mmol/L (98-107); Estimated CRCL calculation 58 ml/min; Estimated Glomerular Filt Rate > 60; Glucose 110 mg/dL (65-110); Potassium 3.9 mmol/L (3.4-5.0); Sodium 139 mmol/L (137-145)
[2021-11-10 07:51] LABS: CRP 18.4 mg/dL (<1.0)
[2021-11-10] MEDS: ENOXAPARIN 40 MG/0.4 ML SYRINGE SUB-Q (09:31)
[2021-11-10] MEDS: PANTOPRAZOLE SODIUM IV 40 MG VIAL IV PUSH (09:32)
[2021-11-10] MEDS: cycloSPORINE 0.4 ML OPHTH SOLUTION 1 DROP EACH EYE (09:33)
[2021-11-10] MEDS: SODIUM CHLORIDE 0.9% IV 1,000 ML 60 ML IV CONT (11:11)
--- NOTE | 2021-11-10 15:57 | P.PNIM_ITS ---
Progress Note: A&P Assessment and Plan (1) COVID-19: Code(s): U07.1 - COVID-19 Status: Acute Assessment and Plan: * COVID positive * On supplemental oxygen, wean to maintain saturation >90% * D. Dimer 3.76, ferritin 180, CRP 2.9, and LDH 527 * Chest xray no active cardiopulmonary disease * CTA negative for PE but does show bilateral pneumonia, could be due to covid or aspiration. Will continue Zosyn to cover aspiration PNA. * Continue Remdesivir and Decadron (2) Dysphagia: Code(s): R13.10 - Dysphagia, unspecified Status: Acute Assessment and Plan: * Family reports coughing with eating or drinking * Dr. Goodwin did a esophageal stretching on 02/17 * ST consulted, they recommend NPO * Will keep him NPO w/ low rate maintenance fluids. Will assess his progress since treating his COVID, PNA, and CHF. I have concerns about his overall decline due to his cancer but will address his current infections first and foremost. * Did speak with today who is open to a hospice consult. Will discuss with manager critical care unit. (3) CHF (congestive heart failure): Code(s): I50.9 - Heart failure, unspecified Status: Acute Assessment and Plan: * BNP elevated at 1660 * Echo reviewed, poor study w/ limited views * 20mg PO lasix at home, change to IV Lasix 40mg BID x 4 doses * Trend urine output * Supplemental oxygen * Trend SPO2 * Daily weights (4) CAD (coronary artery disease): Code(s): I25.10 - Atherosclerotic heart disease of [place] coronary artery without angina pectoris Status: Acute Assessment and Plan: * Hx of [place] * Continue aspirin, atenolol 50mg PO daily * EKG SR in 93 * Echo reviewed * registrar assistant (5) HTN (hypertension): Code(s): I10 - Essential (primary) hypertension Status: Acute Assessment and Plan: * BP reviewed, stable * Continue home lisinopril 40mg PO daily, Imdur 60mg PO daily, Atentolol 50mg PO daily, Amlodipine 10mg PO daily * trend BP (6) Hyperlipidemia: Code(s): E78.5 - Hyperlipidemia, unspecified Status: Acute Assessment and Plan: * Continue home fluvastatin 80mg PO daily * LFTs WNL (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 Washington * Scan was done recently however, not able to see the results Subjective Date/time seen: 11/10/21 15:57 Interval history: 86 year old male with a past medical history of HTN, CHF, CAD, [place], CAD, carcinoid tumor of the abdomen, who presented to the ED after a fall. Pt sleeping when I arrived. Arousable but still will not converse with me. Seems distant and confused. RN states he was more communicative with her this AM. Spoke w/ at length today who states he is often very out of it whenever he wakes up. She also tells me he has been steadily declining over the past year or so. She is open to a hospice consult. Review of Systems Review of Systems: ROS unobtainable: Yes unobtainable due to mental status Exam Narrative: General: No acute distress, chronically ill appearing, elderly Eyes: PERRL, no
--- NOTE | 2021-11-10 15:57 | PM.IMPN ---
Progress Note: A&P Assessment and Plan (1) COVID-19: Code(s): U07.1 - COVID-19 Status: Acute Assessment and Plan: COVID positive On supplemental oxygen, wean to maintain saturation >90% D. Dimer 3.76, ferritin 180, CRP 2.9, and LDH 527 Chest xray no active cardiopulmonary disease CTA negative for PE but does show bilateral pneumonia, could be due to covid or aspiration. Will continue Zosyn to cover aspiration PNA. Continue Remdesivir and Decadron (2) Dysphagia: Code(s): R13.10 - Dysphagia, unspecified Status: Acute Assessment and Plan: Family reports coughing with eating or drinking Dr. Goodwin did a esophageal stretching on 02/17 ST , they recommend NPO Will keep him NPO w/ low rate maintenance fluids. Will assess his progress since treating his COVID, PNA, and CHF. I have concerns about his overall decline due to his cancer but will address his current infections first and foremost. Did speak with today who is open to a hospice consult. Will discuss with medicare compliance auditor. (3) CHF (congestive heart failure): Code(s): I50.9 - Heart failure, unspecified Status: Acute Assessment and Plan: BNP elevated at 1660 Echo reviewed, poor study w/ limited views 20mg PO lasix at home, change to IV Lasix 40mg BID x 4 doses Trend urine output Supplemental oxygen Trend SPO2 Daily weights (4) CAD (coronary artery disease): Code(s): I25.10 - Atherosclerotic heart disease of [place] coronary artery without angina pectoris Status: Acute Assessment and Plan: Hx of [place] Continue aspirin, atenolol 50mg PO daily EKG SR in 93 Echo reviewed monitoring coordinator (5) HTN (hypertension): Code(s): I10 - Essential (primary) hypertension Status: Acute Assessment and Plan: BP reviewed, stable Continue home lisinopril 40mg PO daily, Imdur 60mg PO daily, Atentolol 50mg PO daily, Amlodipine 10mg PO daily trend BP (6) Hyperlipidemia: Code(s): E78.5 - Hyperlipidemia, unspecified Status: Acute Assessment and Plan: Continue home fluvastatin 80mg PO daily LFTs WNL (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 Washington Scan was done recently however, not able to see the results Subjective Date/time seen: 11/10/21 15:57 Interval history: 86 year old male with a past medical history of HTN, CHF, CAD, [place], CAD, carcinoid tumor of the abdomen, who presented to the ED after a fall. Pt sleeping when I arrived. Arousable but still will not converse with me. Seems distant and confused. RN states he was more communicative with her this AM. Spoke w/ at length today who states he is often very out of it whenever he wakes up. She also tells me he has been steadily declining over the past year or so. She is open to a hospice consult. Review of Systems Review of Systems: ROS unobtainable: Yes unobtainable due to mental status Exam Narrative: General: No acute distress, chronically ill appearing, elderly Eyes: PERRL, no scleral icterus HEENT: NCAT, external ears normal, dry mucous membranes Respiratory: No respiratory distress, diffuse rhonchi and scattered wheezes Cardiovascular: RRR, no murmur Abdominal: Soft, nontender, non distended, no rebound or guarding Musculoskeletal: Moves all 4 extremities, no edema Neurological: A/Ox0, alert and tracks my movements with his eyes but will not communicate with me, no facial asymmetry Skin: Warm, dry, no rashes Psychiatric: Confused Objective Data Vital Signs Vital Signs: Vital Signs - 24 hr 11/09/21 16:00 11/09/21 16:00 11/09/21 20:00 Temperature 97.2 F L 97
[2021-11-10] MEDS: REMDESIVIR 100 MG/NS 250 ML 100 MG/250 ML BAG 250 MG IVPB (22:06)
[2021-11-11] VITALS (11 sets, daily range): BP systolic 128–153; BP diastolic 62–82; PULSE 52–76; RESP 14–18; TEMP 35.9–36.6; O2SAT 97–100
[2021-11-11 06:40] LABS: Basophils Percent Auto 0.3 % (0.2-1.2); Eosinophils Percent Auto 0.1 % (0-4.4); Hematocrit 46.8 % (42.0-52.0); Immature Granulocyte Absolute 0.06 K/mm3 (0.00-0.031); Immature Granulocyte Percent A 0.7 % (0-0.5); Lymphocytes Absolute Auto 0.66 K/mm3 (0.9-3.2); Lymphocytes Percent Auto 7.6 % (18.3-44.2); Mean Corpuscular HGB Conc 27.8 g/dl (32-36); Mean Corpuscular Volume 107.8 fl (80-100); Mean Platelet Volume 10.9 fl (7.4-10.4); Monocytes Absolute Auto 0.5 K/mm3 (0.1-0.6); Monocytes Percent Auto 5.5 % (2.6-8.5); Neutrophils Absolute Auto 7.4 K/mm3 (1.3-6.7); Neutrophils Percent Auto 85.8 % (45.5-73.1); Nucleated Red Blood Cells Absolute Auto 0.1 K/mm3 (0.0-0.012); Nucleated Red Blood Cells Perc 1.3 % (0.0-0.2); Platelet Count Result 107 k/mm3 (150-375); Red Blood Count 4.34 M/mm3 (4.6-6.20); Red Cell Distribution Width 16.2 % (11.5-14.5); White Blood Count 8.7 K/mm3 (4.5-10.0)
[2021-11-11 06:49] LABS: INR 1.2; Prothrombin Time 14.7 Seconds (11.1-14.7)
[2021-11-11 07:16] LABS: Alanine Aminotransferase 23 U/L (6-50); Albumin Level 3.3 g/dL (3.5-5.1); Alkaline Phosphatase 81 U/L (38-126); Anion Gap 4 mmol/L (8-16); Aspartate Amino Transferase 47 U/L (17-59); Bilirubin,Total 0.8 mg/dL (0.2-1.3); Blood Urea Nitrogen 30 mg/dL (9-20); CRP 14.6 mg/dL (<1.0); Calcium 7.8 mg/dL (8.4-10.2); Carbon Dioxide 35 mmol/L (22-30); Chloride 105 mmol/L (98-107); Estimated CRCL calculation 58 ml/min; Estimated Glomerular Filt Rate > 60; Glucose 113 mg/dL (65-110); Potassium 3.8 mmol/L (3.4-5.0); Sodium 144 mmol/L (137-145)
[2021-11-11] MEDS: PANTOPRAZOLE SODIUM IV 40 MG VIAL IV PUSH (09:15)
[2021-11-11] MEDS: ENOXAPARIN 40 MG/0.4 ML SYRINGE SUB-Q (09:16)
[2021-11-11] MEDS: cycloSPORINE 0.4 ML OPHTH SOLUTION 1 DROP EACH EYE (09:17)
[2021-11-11 09:51] LABS: Anisocytosis 1+ (NORMAL)
[2021-11-11 09:52] LABS: Hypochromasia 1+ (NORMAL)
[2021-11-11 09:58] LABS: Acanthocytes 1+ (NORMAL)
[2021-11-11 09:59] LABS: Poikilocytosis 1+ (NORMAL)
--- NOTE | 2021-11-11 13:25 | P.PNIM_ITS ---
Progress Note: A&P Assessment and Plan (1) COVID-19: Code(s): U07.1 - COVID-19 Status: Acute Assessment and Plan: * COVID positive * On supplemental oxygen, wean to maintain saturation >90% * D. Dimer 3.76, ferritin 180, CRP 2.9, and LDH 527 * Chest xray no active cardiopulmonary disease * CTA negative for PE but does show bilateral pneumonia, could be due to covid or aspiration. Will continue Zosyn to cover aspiration PNA. * Continue Remdesivir and Decadron (2) Dysphagia: Code(s): R13.10 - Dysphagia, unspecified Status: Acute Assessment and Plan: * Family reports coughing with eating or drinking * Dr. Goodwin did a esophageal stretching on 02/17 * ST consulted, they recommend NPO * Will keep him NPO w/ low rate maintenance fluids. Will assess his progress since treating his COVID, PNA, and CHF. I have concerns about his overall decline due to his cancer but will address his current infections first and foremost. * Did speak with who is open to a hospice consult. Discussed with dog day care attendant. Hospice consult arranged for today. (3) CHF (congestive heart failure): Code(s): I50.9 - Heart failure, unspecified Status: Acute Assessment and Plan: * BNP elevated at 1660 * Echo reviewed, poor study w/ limited views * 20mg PO lasix at home, change to IV Lasix 40mg BID x 4 doses * Trend urine output * Supplemental oxygen * Trend SPO2 * Daily weights (4) CAD (coronary artery disease): Code(s): I25.10 - Atherosclerotic heart disease of [place] coronary artery without angina pectoris Status: Acute Assessment and Plan: * Hx of [place] * Continue aspirin, atenolol 50mg PO daily * EKG SR in 93 * Echo reviewed * laboratory monitor (5) HTN (hypertension): Code(s): I10 - Essential (primary) hypertension Status: Acute Assessment and Plan: * BP reviewed, stable * Continue home lisinopril 40mg PO daily, Imdur 60mg PO daily, Atentolol 50mg PO daily, Amlodipine 10mg PO daily * trend BP (6) Hyperlipidemia: Code(s): E78.5 - Hyperlipidemia, unspecified Status: Acute Assessment and Plan: * Continue home fluvastatin 80mg PO daily * LFTs WNL (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 Washington * Scan was done recently however, not able to see the results * Hospice consult today Subjective Date/time seen: 11/11/21 13:25 Interval history: 86 year old male with a past medical history of HTN, CHF, CAD, [place], CAD, carcinoid tumor of the abdomen, who presented to the ED after a fall. Pt was awake on my arrival today and more alert than previous days. He knew his name and that he was in a hospital but was otherwise confused. He complains of abdominal pain and back pain. Further hx limited secondary to mental status. Review of Systems Review of Systems: ROS unobtainable: Yes unobtainable due to mental status Exam Narrative: General: No acute distress, chronically ill appearing, elderly Eyes: PERRL, no scleral icterus HEENT: NCAT, external ears normal, dry mucous membranes
--- NOTE | 2021-11-11 13:25 | PM.IMPN ---
Progress Note: A&P Assessment and Plan (1) COVID-19: Code(s): U07.1 - COVID-19 Status: Acute Assessment and Plan: COVID positive On supplemental oxygen, wean to maintain saturation >90% D. Dimer 3.76, ferritin 180, CRP 2.9, and LDH 527 Chest xray no active cardiopulmonary disease CTA negative for PE but does show bilateral pneumonia, could be due to covid or aspiration. Will continue Zosyn to cover aspiration PNA. Continue Remdesivir and Decadron (2) Dysphagia: Code(s): R13.10 - Dysphagia, unspecified Status: Acute Assessment and Plan: Family reports coughing with eating or drinking Dr. Goodwin did a esophageal stretching on 02/17 ST , they recommend NPO Will keep him NPO w/ low rate maintenance fluids. Will assess his progress since treating his COVID, PNA, and CHF. I have concerns about his overall decline due to his cancer but will address his current infections first and foremost. Did speak with who is open to a hospice consult. Discussed with personal care worker. Hospice consult arranged for today. (3) CHF (congestive heart failure): Code(s): I50.9 - Heart failure, unspecified Status: Acute Assessment and Plan: BNP elevated at 1660 Echo reviewed, poor study w/ limited views 20mg PO lasix at home, change to IV Lasix 40mg BID x 4 doses Trend urine output Supplemental oxygen Trend SPO2 Daily weights (4) CAD (coronary artery disease): Code(s): I25.10 - Atherosclerotic heart disease of [place] coronary artery without angina pectoris Status: Acute Assessment and Plan: Hx of [place] Continue aspirin, atenolol 50mg PO daily EKG SR in 93 Echo reviewed radiation monitor (5) HTN (hypertension): Code(s): I10 - Essential (primary) hypertension Status: Acute Assessment and Plan: BP reviewed, stable Continue home lisinopril 40mg PO daily, Imdur 60mg PO daily, Atentolol 50mg PO daily, Amlodipine 10mg PO daily trend BP (6) Hyperlipidemia: Code(s): E78.5 - Hyperlipidemia, unspecified Status: Acute Assessment and Plan: Continue home fluvastatin 80mg PO daily LFTs WNL (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 Washington Scan was done recently however, not able to see the results Hospice consult today Subjective Date/time seen: 11/11/21 13:25 Interval history: 86 year old male with a past medical history of HTN, CHF, CAD, [place], CAD, carcinoid tumor of the abdomen, who presented to the ED after a fall. Pt was awake on my arrival today and more alert than previous days. He knew his name and that he was in a hospital but was otherwise confused. He complains of abdominal pain and back pain. Further hx limited secondary to mental status. Review of Systems Review of Systems: ROS unobtainable: Yes unobtainable due to mental status Exam Narrative: General: No acute distress, chronically ill appearing, elderly Eyes: PERRL, no scleral icterus HEENT: NCAT, external ears normal, dry mucous membranes Respiratory: No respiratory distress, diffuse rhonchi and scattered wheezes Cardiovascular: RRR, no murmur Abdominal: Soft, nontender, non distended, no rebound or guarding Musculoskeletal: Moves all 4 extremities, no edema Neurological: A/Ox2, confused, no facial asymmetry Psychiatric: Confused Objective Data Vital Signs Vital Signs: Vital Signs - 24 hr 11/10/21 16:00 11/10/21 20:00 11/10/21 20:00 Temperature 97.7 F 97.0 F L 97.0 F L Pulse Rate 62 67 67 Respiratory Rate 14 16 Blood Pressure 125/69 142/61 H 142/61 H Pulse Oximetry 98 94 94 Oxygen Delivery Oxygen Flow Rate
[2021-11-11] MEDS: REMDESIVIR 100 MG/NS 250 ML 100 MG/250 ML BAG 250 MG IVPB (22:41)
[2021-11-11] MEDS: SODIUM CHLORIDE 0.9% IV 1,000 ML 60 ML IV CONT (22:41)
[2021-11-12 04:00] VITALS: BP 146/65; PULSE 55; RESP 16; TEMP 36; O2SAT 99
[2021-11-12 07:30] LABS: Basophils Percent Auto 0.1 % (0.2-1.2); Hematocrit 40.7 % (42.0-52.0); Hemoglobin 12.7 g/dL (14.0-18.0); Immature Granulocyte Absolute 0.07 K/mm3 (0.00-0.031); Immature Granulocyte Percent A 0.8 % (0-0.5); Immature Platelet Fraction Pct 4.6 % (0.9-11.2); Lymphocytes Percent Auto 11.8 % (18.3-44.2); Mean Corpuscular HGB Conc 31.2 g/dl (32-36); Mean Corpuscular Hemoglobin 29.8 pg (26-34); Mean Corpuscular Volume 95.5 fl (80-100); Mean Platelet Volume 10.2 fl (7.4-10.4); Monocytes Absolute Auto 0.6 K/mm3 (0.1-0.6); Monocytes Percent Auto 7.1 % (2.6-8.5); Neutrophils Absolute Auto 6.8 K/mm3 (1.3-6.7); Neutrophils Percent Auto 80.2 % (45.5-73.1); Platelet Count Result 132 k/mm3 (150-375); Red Blood Count 4.26 M/mm3 (4.6-6.20); Red Cell Distribution Width 16.1 % (11.5-14.5); White Blood Count 8.5 K/mm3 (4.5-10.0)
[2021-11-12 07:39] LABS: INR 1.3; Prothrombin Time 15.4 Seconds (11.1-14.7)
[2021-11-12 07:49] LABS: Alanine Aminotransferase 27 U/L (6-50); Anion Gap 4 mmol/L (8-16); Blood Urea Nitrogen 23 mg/dL (9-20); Calcium 7.8 mg/dL (8.4-10.2); Carbon Dioxide 29 mmol/L (22-30); Chloride 107 mmol/L (98-107); Estimated CRCL calculation 67 ml/min; Estimated Glomerular Filt Rate > 60; Glucose 113 mg/dL (65-110); Potassium 3.4 mmol/L (3.4-5.0); Sodium 140 mmol/L (137-145)
[2021-11-12 08:00] VITALS: BP 144/65; PULSE 65; RESP 22; TEMP 35.9; O2SAT 97
--- NOTE | 2021-11-12 08:05 | P.PNIM_ITS ---
Progress Note: A&P Assessment and Plan (1) COVID-19: Code(s): U07.1 - COVID-19 Status: Acute Assessment and Plan: * COVID positive * On supplemental oxygen, wean to maintain saturation >90% * D. Dimer 3.76, ferritin 180, CRP 2.9, and LDH 527 * Chest xray no active cardiopulmonary disease * CTA negative for PE but does show bilateral pneumonia, could be due to covid or aspiration. Will continue Zosyn to cover aspiration PNA. * Continue Remdesivir and Decadron (2) Dysphagia: Code(s): R13.10 - Dysphagia, unspecified Status: Acute Assessment and Plan: * Family reports coughing with eating or drinking * Dr. Goodwin did a esophageal stretching on 02/17 * ST consulted, they recommend NPO * Will keep him NPO w/ low rate maintenance fluids. Will assess his progress since treating his COVID, PNA, and CHF. I have concerns about his overall decline due to his cancer but will address his current infections first and foremost. * Did speak with who is open to a hospice consult. Discussed with animal care worker. Hospice consult arranged for today. (3) CHF (congestive heart failure): Code(s): I50.9 - Heart failure, unspecified Status: Acute Assessment and Plan: * BNP elevated at 1660 * Echo reviewed, poor study w/ limited views * 20mg PO lasix at home, change to IV Lasix 40mg BID x 4 doses * Trend urine output * Supplemental oxygen * Trend SPO2 * Daily weights (4) CAD (coronary artery disease): Code(s): I25.10 - Atherosclerotic heart disease of [place] coronary artery without angina pectoris Status: Acute Assessment and Plan: * Hx of [place] * Continue aspirin, atenolol 50mg PO daily * EKG SR in 93 * Echo reviewed * media monitor (5) HTN (hypertension): Code(s): I10 - Essential (primary) hypertension Status: Acute Assessment and Plan: * BP reviewed, stable * Continue home lisinopril 40mg PO daily, Imdur 60mg PO daily, Atentolol 50mg PO daily, Amlodipine 10mg PO daily * trend BP (6) Hyperlipidemia: Code(s): E78.5 - Hyperlipidemia, unspecified Status: Acute Assessment and Plan: * Continue home fluvastatin 80mg PO daily * LFTs WNL (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 Washington * Scan was done recently however, not able to see the results * Hospice consult today Subjective Date/time seen: 11/12/21 08:05 Interval history: 86 year old male with a past medical history of HTN, CHF, CAD, [place], CAD, carcinoid tumor of the abdomen, who presented to the ED after a fall. Pt was awake on my arrival today and more alert than previous days. He knew his name and that he was in a hospital but was otherwise confused. He complains of abdominal pain and back pain. Further hx limited secondary to mental status. Review of Systems Review of Systems: ROS unobtainable: Yes unobtainable due to mental status Objective Data Vital Signs Vital Signs: Vital Signs - 24 hr 11/11/21 08:25 11/11/21 12:00 11/11/21 12:00
--- NOTE | 2021-11-12 08:05 | PM.IMPN ---
Progress Note: A&P Assessment and Plan (1) COVID-19: Code(s): U07.1 - COVID-19 Status: Acute Assessment and Plan: COVID positive On supplemental oxygen, wean to maintain saturation >90% D. Dimer 3.76, ferritin 180, CRP 2.9, and LDH 527 Chest xray no active cardiopulmonary disease CTA negative for PE but does show bilateral pneumonia, could be due to covid or aspiration. Will continue Zosyn to cover aspiration PNA. Continue Remdesivir and Decadron (2) Dysphagia: Code(s): R13.10 - Dysphagia, unspecified Status: Acute Assessment and Plan: Family reports coughing with eating or drinking Dr. Goodwin did a esophageal stretching on 02/17 ST , they recommend NPO Will keep him NPO w/ low rate maintenance fluids. Will assess his progress since treating his COVID, PNA, and CHF. I have concerns about his overall decline due to his cancer but will address his current infections first and foremost. Did speak with who is open to a hospice consult. Discussed with caregiver services home. Hospice consult arranged for today. (3) CHF (congestive heart failure): Code(s): I50.9 - Heart failure, unspecified Status: Acute Assessment and Plan: BNP elevated at 1660 Echo reviewed, poor study w/ limited views 20mg PO lasix at home, change to IV Lasix 40mg BID x 4 doses Trend urine output Supplemental oxygen Trend SPO2 Daily weights (4) CAD (coronary artery disease): Code(s): I25.10 - Atherosclerotic heart disease of [place] coronary artery without angina pectoris Status: Acute Assessment and Plan: Hx of [place] Continue aspirin, atenolol 50mg PO daily EKG SR in 93 Echo reviewed monitoring engineer (5) HTN (hypertension): Code(s): I10 - Essential (primary) hypertension Status: Acute Assessment and Plan: BP reviewed, stable Continue home lisinopril 40mg PO daily, Imdur 60mg PO daily, Atentolol 50mg PO daily, Amlodipine 10mg PO daily trend BP (6) Hyperlipidemia: Code(s): E78.5 - Hyperlipidemia, unspecified Status: Acute Assessment and Plan: Continue home fluvastatin 80mg PO daily LFTs WNL (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 Washington Scan was done recently however, not able to see the results Hospice consult today Subjective Date/time seen: 11/12/21 08:05 Interval history: 86 year old male with a past medical history of HTN, CHF, CAD, [place], CAD, carcinoid tumor of the abdomen, who presented to the ED after a fall. Pt was awake on my arrival today and more alert than previous days. He knew his name and that he was in a hospital but was otherwise confused. He complains of abdominal pain and back pain. Further hx limited secondary to mental status. Review of Systems Review of Systems: ROS unobtainable: Yes unobtainable due to mental status Objective Data Vital Signs Vital Signs: Vital Signs - 24 hr 11/11/21 08:25 11/11/21 12:00 11/11/21 12:00 Temperature 97.2 F L 97.4 F L Pulse Rate 65 60 57 L Respiratory Rate 14 14 Blood Pressure 137/74 128/66 Pulse Oximetry 98 100 Oxygen Delivery Oxygen Flow Rate 11/11/21 16:00 11/11/21 16:00 11/11/21 20:00 Temperature 97.7 F Pulse Rate 70 62 62 Respiratory Rate 16 Blood Pressure 143/73 H Pulse Oximetry 99 Oxygen Delivery Oxygen Flow Rate 11/11/21 20:00 11/11/21 20:00 11/11/21 20:05 Temperature 96.8 F L 96.8 F L Pulse Rate 67 67 61 Respiratory Rate 16 16 16 Blood Pressure 142/62 H 142/62 H 140/82 Pulse Oximetry 100 100 99 Oxygen Delivery Oxygen Flow Rate 11/11/21 21:50 11/11/21 23:58 11/12/21 04:00 Temp
[2021-11-12] MEDS: cycloSPORINE 0.4 ML OPHTH SOLUTION 1 DROP EACH EYE (09:33)
[2021-11-12] MEDS: PANTOPRAZOLE SODIUM IV 40 MG VIAL IV PUSH (09:34)
[2021-11-12] MEDS: ENOXAPARIN 40 MG/0.4 ML SYRINGE SUB-Q (09:34)
--- NOTE | 2021-11-12 09:44 | PM.DS ---
DS: Admitting Diagnosis Discharge Date November 12, 2021 Admitting Diagnosis Fall with generalized weakness DS: Discharge Diagnosis Discharge Diagnosis (1) COVID-19: Code(s): U07.1 - COVID-19 Status: Acute Assessment and Plan: Remdesivir, Decadron, supplemental oxygen (2) Dysphagia: Code(s): R13.10 - Dysphagia, unspecified Status: Acute Assessment and Plan: Zosyn started for possible aspiration pneumonia, family reports history of coughing with eating and drinking for a while (3) CHF (congestive heart failure): Code(s): I50.9 - Heart failure, unspecified Status: Acute (4) CAD (coronary artery disease): Code(s): I25.10 - Atherosclerotic heart disease of [place] coronary artery without angina pectoris Status: Acute (5) HTN (hypertension): Code(s): I10 - Essential (primary) hypertension Status: Acute (6) Hyperlipidemia: Code(s): E78.5 - Hyperlipidemia, unspecified Status: Acute (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 - Secondary carcinoid tumors, unspecified site Status: Acute Assessment and Plan: Due to multiple comorbidities, inability to wean oxygen with COVID and metastatic cancer, family elected for hospice and patient was discharged home with close symptom management by hospice team DS: Summary Hospital Course Hospital Course: See above Time Spent with Patient Time attestation: Total time spent providing and/or coordinating discharge services: DS: Data Data Completed and Pending Labs on day of discharge: Labs from last 24 hours 11/12/21 11/12/21 11/12/21 07:21 07:21 07:21 WBC 8.5 RBC 4.26 L Hgb 12.7 L Hct 40.7 L MCV 95.5 D MCH 29.8 MCHC 31.2 L RDW 16.1 H Plt Count 132 L MPV 10.2 Immature Gran % (Auto) 0.8 H Neut % (Auto) 80.2 H Lymph % (Auto) 11.8 L Rice % (Auto) 7.1 Eos % (Auto) 0.0 Baso % (Auto) 0.1 L Lymph # (Auto) 1.00 Rice # (Auto) 0.6 Eos # (Auto) 0.0 Baso # (Auto) 0.0 Abs Immat Gran (auto) 0.07 H Absolute Neuts (auto) 6.8 H Absolute Nucleated RBC 0.0 Nucleated RBC % 0.0 Platelet Estimate % Immature Plt Fraction 4.6 Hypochromasia Poikilocytosis Anisocytosis Acanthocytes (Spur) PT 15.4 H INR 1.3 Sodium 140 Potassium 3.4 Chloride 107 Carbon Dioxide 29 Anion Gap 4 L BUN 23 H Creatinine 0.60 L Estim Creat Clear Calc 67 Estimated GFR > 60 Glucose 113 H Calcium 7.8 L ALT 27 11/11/21 05:57 WBC 8.7 RBC 4.34 L Hgb 13.0 L Hct 46.8 MCV 107.8 H D MCH 30.0 MCHC 27.8 L RDW 16.2 H Plt Count 107 L MPV 10.9 H Immature Gran % (Auto) 0.7 H Neut % (Auto) 85.8 H Lymph % (Auto) 7.6 L Rice % (Auto) 5.5 Eos % (Auto) 0.1 Baso % (Auto) 0.3 Lymph # (Auto) 0.66 L Rice # (Auto) 0.5 Eos # (Auto) 0.0 Baso # (Auto) 0.0 Abs Immat Gran (auto) 0.06 H Absolute Neuts (auto) 7.4 H Absolute Nucleated RBC 0.1 H Nucleated RBC % 1.3 H Platelet Estimate Slightly decreased % Immature Plt Fraction Hypochromasia 1+ Poikilocytosis 1+ Anisocytosis 1+ Acanthocytes (Spur) 1+ PT INR Sodium Potassium Chloride Carbon Dioxide Anion Gap BUN Creatinine Estim Creat Clear Calc Estimated GFR Glucose Calcium ALT Preliminary micro results at discharge 11/08/21 10:12 Blood Culture - Preliminary Blood 11/08/21 10:31 Blood Culture - Preliminary Blood Discharge Plan Discharge Attending physician on discharge: Claire Phillips Discharging Clinician: Claire Phillips Patient Disposition: Hospice - Home Activity: as tolerated Diet: as tolerated Patient Instructions: COVID-19 (Coronavirus Disease 2019) (DC) Stand Alone Forms: General Discharge Information Discharge Medications: Continued furosemide 40 mg tablet 40 mg PO QAM isosorbide mononitrate 60 mg tablet extende
[2021-11-12 12:00] VITALS: BP 149/70; PULSE 63; RESP 24; TEMP 35.9; O2SAT 97
== END 2021-11-12 14:28 | disposition hospice, home (50) | DRG 177 ==
LOC: ANHED 13:19 → ANH3MEDSUR 13:27
PROVIDERS: Internal Medicine; Nurse Practitioner; Physician Assistant; Admitting Provider Hospitalist; Emergency Provider Nurse Practitioner Family; PCP Internal Medicine; Visit Provider Student in an Organized Health Care Education/Training Program
DX: U07.1 COVID-19 (principal); J69.0 Pneumonitis due to inhalation of food and vomit; C7B.09 Secondary carcinoid tumors of other sites; R55 Syncope and collapse; I25.10 Atherosclerotic heart disease of native coronary artery without angina pectoris; I11.0 Hypertensive heart disease with heart failure; I50.9 Heart failure, unspecified; R13.10 Dysphagia, unspecified; E78.5 Hyperlipidemia, unspecified; K21.9 Gastro-esophageal reflux disease without esophagitis; W18.39XA Other fall on same level, initial encounter; I25.2 Old myocardial infarction; Z95.5 Presence of coronary angioplasty implant and graft
CPT/HCPCS: 36415; 36600; 70450; 71045; 71275; 72125; 80048; 80053; 81003; 82565; 82728; 82805; 83605; 83615; 83690; 83735; 83880; 84460; 84484; 85025; 85055; 85380; 85610; 86140; 87040; 92610; 93005; 93306; 93308; 93880; 96365; 96367; 96372; 96375; 96376; 97161; 97166; 99285; A9270; C9113; C9803; G0378; J0248; J1100; J1650; J1940; J2543; J3480; J7030; J7040; Q9967; U0003; U0005